=== PATIENT | male | born 1970 | race Caucasian/White ===

== ENCOUNTER 2019-07-22 09:59 | Inpatient (IN) | payer BC ==
[~2019-07-22] VITALS: Ht 172.7 cm; Wt 90.5 kg
[2019-07-22 10:02] VITALS: Ht 172.7 cm; Wt 90.5 kg
--- NOTE | 2019-07-22 10:09 | NUR ---
PT C/O CHEST TIGHTNESS RADIATING TO LEFT SHOULDER WITH SOB AND LEFT SHOULDER NUMBNESS SINCE SATURDAY AM, PT ALSO C/O GENERAL BODY ACHES SINCE SATURDAY AM. PT DENIES ANY COUGH AND/OR HX ANXIETY. PT STS +DIZZY WITH -LOC. PT DENIES ANY EPISODES OF N/V. PT DENIES ANY RECENT TRAUMA AND/OR INJURY, PT AAOX4, RESPS E/U, LUNGS CTA, SKIN PINK DRY AND WARM, NO S/S RESP DISTRESS NOTED AT THIS TIME , PT SPEAKING FULL CLEAR SENTENCES, IN NAD AT THIS TIME, PT GOWNED AND PLACED ON FULL CM , SINUS TACHYCARDIA, AWAITING MSE
--- NOTE | 2019-07-22 10:39 | NUR ---
LAB AT BEDSIDE FOR BLOOD DRAW
[2019-07-22 11:00] LABS: CALCIUM 8.5 mg/dL (8.5-10.1); CARBON DIOXIDE 25.9 mmol/L (21-32); CHLORIDE SERUM 104 mmol/L (98-107); CREATININE SERUM 0.9 mg/dL (0.7-1.3); GFR1 > 60 mL/min; GLUCOSE SERUM 101 mg/dL (74-106); POTASSIUM SERUM 3.8 mmol/L (3.5-5.1); SODIUM SERUM 140 mmol/L (136-145)
[2019-07-22 11:02] LABS: BASOPHIL % 0.3 % (0-2); PLATELET COUNT 264 x10^3mcL (130-400); RED CELL DISTRIBUTION WIDTH 13.2 % (11.5-14.5)
[2019-07-22 11:05] LABS: ALBUMIN 3.6 g/dL (3.4-5.0); ALKALINE PHOSPHATASE 62 U/L (46-116); ALT/SGPT 40 U/L (16-63); AST/SGOT 10 U/L (15-37); BILIRUBIN TOTAL 0.9 mg/dL (0.20-1.00); CHOLESTEROL 226 mg/dL (<200); CHOLESTEROL/HDL RATIO 6.6; HDL CHOLESTEROL 34 mg/dL (40-60); TOTAL PROTEIN, SERUM 7.1 g/dL (6.4-8.2); TRIGLYCERIDES 169 mg/dL (<150)
--- NOTE | 2019-07-22 11:11 | NUR ---
PT. ARRIVED TO ER C/O CHEST PAIN, 07/04, DESCRIBES PRESSURE RADIATING TO THE BACK X 3 MONTHS, NON-PRODUCTIVE COUGH, WEAKNESS, FATIGUED, DIZZY AT TIMES, PT. STATES THAT HE HAS SEEN DOCTOR AND THEY TOLD HIM ALL EXAMS WERE NORMAL, DR. LACEY EXPLAINED POC TO PT, PT. LAYING IN BED, AAOX4, ON LAMP CLEANER, PULSE OX, CHEST X RAY OBNTAINED, BLOOD DRAW OBTAINED, AT BEDSIDE, WILL MONITOR,
--- NOTE | 2019-07-22 11:15 | NUR ---
MEDICATED PT. PER MD ORDER, PT. TOLERATED WELL, SEE EMAR
--- NOTE | 2019-07-22 12:08 | NUR ---
URINE SAMPLE SENT TO LAB
[2019-07-22 12:36] LABS: AMPHETAMINE QUAL UR NONE DETECTED (See below)
--- NOTE | 2019-07-22 14:04 | NUR ---
PT MEDICATED PER MD ORDERS SEE EMAR. PT GIVEN SANDWICH AND OJ OK PER ER MD. PT IN NO DISTRESS ON FULL CM NSR VSS AT BEDSIDE CALL LIGHT IN REACH WILL MONITOR
--- NOTE | 2019-07-22 14:37 | NUR ---
PT. STATING HE HAS THROBBING SENSATION ON LOWER LEFT ABDOMEN, PT. STATES THAT IS WHAT IS CAUSING CHEST PAIN, REPORTED TO DR. LACEY. NO NEW ORDERS AT THIS TIME.
--- NOTE | 2019-07-22 14:57 | NUR ---
BINDING BENCH WORKER AT BEDSIDE, ASKED DR. LACEY IF HE WOULD LIKE A CT OF ABD, HE STATES NO, NOT AT THIS TIME.
--- NOTE | 2019-07-22 15:17 | NUR ---
REPORT GIVEN TO AMY GLEASON, ANSWERED ALL QUESTIONS AND CONCERNS.
--- NOTE | 2019-07-22 15:31 | NUR ---
RECEIVED PT FROM [place] ON A GUERNEY ACCOMPANIED BY . REPORT GIVEN BY AMY MONTALVO. TELEMONITOR 1 PLACED AND READING NSR, HR 75. PT IS AAOX4. PT DENIES H/A AND DIZZINES. RESP EVEN AND UNLABORED. LUNG SOUNDS CTA BILATERALLY. ON R/A. NO COUGH OR SOB NOTED. ABDOMEN SOFT, NONTENDER, NONDISTENDED. BOWEL SOUNDS ACTIVE X4 QUADS. DENIES N/V. PT STATED HIS LAST BM WAS TODAY AND REPORTS DIARRHEA. PERIPHERAL PULSES PALPABLE. NO EDEMA NOTED. SKIN CDI. IVF RUNNING TO RAC, SITE WNL. NO S/S OF INFECTION OR INFILTRATION AT SITE. PT CAN AMBULATE INDEPENDENTLY. PT STATE HE HAS MID CHEST PAIN RADIATING TO THE L SHOULDER AND BACK. PAIN MED WILL BE GIVEN. PT ORIENTED TO ROOM AND CALL LIGHT. BED IN LOW POSITION. CALL LIGHT WITHIN REACH. AT BEDSIDE.
[2019-07-22 15:36] VITALS: BP 121/72
--- NOTE | 2019-07-22 15:40 | NUR ---
RECEIVED PT FROM ED VIA MICHELLE. ORIENTED PT TO ROOM AND SURROUNDINGS. IV NOTED TO RAC PATENT AND INTACT. TELE 1 PLACED ON PT READING NSR. INSTRUCTED PT ON THE USE OF CALL LIGHT FOR ASSISTANCE. ENDORSED PT TO PRIMARY NURSE VICTORINO
--- NOTE | 2019-07-22 16:39 | NUR ---
NORCO 7.5/325MG PO GIVEN FOR 6/10 CHEST PAIN RADIATING TO L SHOULDER AND L BACK. EXTRA FLUIDS ENCOURAGED. RESP EVEN AND UNLABORED. NO RESP DISTRESS NOTED. CALL LIGHT WITHIN REACH.
--- NOTE | 2019-07-22 18:35 | NUR ---
IV CATH TO RAC LEAKING. REMOVED INTACT. SITE WNL. NEW IV STARTED TO RAC 20G, COVERED WITH CDI OCCLUSIVE, SITE WNL. PT IS AAOX4. DENIES PAIN AT THIS TIME. TELE ONE IN PLACE READING NSR. BED IN LOW POSTION. CALL LIGHT WITHIN REACH. WILL ENDORSE ALL CARE TO NOC RN.
--- NOTE | 2019-07-22 19:10 | NUR ---
PT WAS RECEIVED A/O X4, MACEDONIAN SPEAKING WITH SOME KYRGYZ, ABLE TO MAKE NEEDS KNOWN. TELE #1, PT ADMITTED FOR CP BUT DENIES ANY AT THIS TIME. TROP (-) X2, PENDING 3RD TROP. PULSE IS PALPABLE NO EDEMA PRESENT. BREATHING IS EVEN AND UNLABORED ON RA, NO RESP DISTRESS NOTED. ABD SOFT AND NONDISTENDED, DENIES N/V. VOIDS FREELY, BRP. GENERALIZED WEAKNESS, SKIN WARM DRY, AND INTACT. PT DENIES ANY PAIN AT THIS TIME. IV RFA, PATENT AND INTACT, SITE WNL. NO ACUTE DISTRESS NOTED. CALL LIGHT WITHIN REACH. WILL CONTINUE TO MONITOR.
[2019-07-22 20:27] VITALS: BP 113/73
--- NOTE | 2019-07-22 21:32 | NUR ---
PT C/O 05/04 CP. OFFERED PT MORPHINE IVP, PT REQUESTING NORCO, PRN NORCO GIVEN ORDERED. NO ACUTE DISTRESS NOTED, WILL CONTINUE TO MONITOR.
--- NOTE | 2019-07-23 00:10 | NUR ---
PT AWAKE AND ALERT, BREATHING IS EVEN AND UNLABORED. NO RESP DISTRESS. PATIENT DENIES HAVING ANY PAIN AT THIS TIME. IVF INFUSING WELL, SITE WNL. NO ACUTE DISTRESS NOTED. CALL LIGHT WITHIN REACH. WILL CONTINUE TO MONITOR.
--- NOTE | 2019-07-23 04:40 | NUR ---
PT C/O OF 5/10 CP. PRN NORCO GIVEN ORDERED. NO ACUTE DISTRESS NOTED. WILL CONTINUE TO MONITOR.
[2019-07-23 05:43] VITALS: BP 111/72
--- NOTE | 2019-07-23 06:52 | NUR ---
PT SLEPT AT INTERVALS THROUGHOUT EVENING. BREATHING IS EVEN AND UNLABORED. NO RESP DISTRESS NOTED. PT DENIES HAVING ANY PAIN AT THIS TIME. IV FLUIDS INFUSING WELL, SITE WNL. NO ACUTE CHANGES ENCOUNTERED DURING SHIFT. ALL NEEDS MET AND ANTICIPATED. CALL LIGHT WITHIN REACH. WILL ENDORSE CARE TO A NURSE.
--- NOTE | 2019-07-23 07:10 | NUR ---
RECIEVED PT FROM NIGHT NURSE. PT IS LAYING DOWN IN BED WITH HOB UP RESTING. PT LOOKS TO BE IN NO ACUTE DISTRESS AT THIS TIME. PT COMPLAINING OF 4/10 CHEST PAIN AND STATES IS TOLERABLE AT THIS TIME. TELE MONITOR 1 PRESENT SHOWING NSR. IV SITE PATENT WITH NO SIGNS OF ERYTHEMA OR SWELLING WITH IV FLUIDS INFUSING. BED IN LOWEST POSITION, CALL LIGHT WITHIN REACH. WILL CONTINUE TO MONITOR.
[2019-07-23 07:20] LABS: BASOPHIL % 0.4 % (0-2); PLATELET COUNT 229 x10^3mcL (130-400); RED CELL DISTRIBUTION WIDTH 13.8 % (11.5-14.5)
[2019-07-23 07:29] LABS: CALCIUM 8.3 mg/dL (8.5-10.1); CARBON DIOXIDE 26.3 mmol/L (21-32); CHLORIDE SERUM 107 mmol/L (98-107); CREATININE SERUM 1.1 mg/dL (0.7-1.3); GFR1 > 60 mL/min; GLUCOSE SERUM 88 mg/dL (74-106); MAGNESIUM 2.1 mg/dL (1.8-2.4); POTASSIUM SERUM 3.9 mmol/L (3.5-5.1); SODIUM SERUM 144 mmol/L (136-145)
--- NOTE | 2019-07-23 07:33 | NUR ---
PT IN NO ACUTE DISTRESS. CONTINUITY OF CARE ENDORSED TO SONAM REYES. ALL QUESTIONS AND CONCERNS ADDRESSED.
[2019-07-23 09:45] VITALS: BP 114/69
--- NOTE | 2019-07-23 12:16 | NUR ---
PT IS LAYING DOWN IN BED WITH HOB UP RESTING. PT LOOKS TO BE IN NO ACUTE DISTRESS AND STATES HE IS HAVING CHEST PAIN 4/10 AT THIS TIME BUT THE PAIN IS TOLERABLE. PT DENIES ANY OTHER PAIN. FAMILY MEMBERS AT BEDSIDE. CALL LIGHT WITHIN REACH. WILL CONTINUE TO MONITOR.
[2019-07-23 13:12] VITALS: BP 110/68
[2019-07-23 16:30] VITALS: BP 116/63
--- NOTE | 2019-07-23 17:00 | NUR ---
PT IS LAYING DOWN IN BED WITH HOB UP RESTING TALKING WITH FAMILY. PT LOOKS TO BE IN NO ACUTE DISTRESS AT THIS TIME AND STATES THAT HE HAS CHEST PAIN 6/10 AND STATES THE PAIN IS TOLERABLE AT THIS TIME AND STATES DOES NOT NEED MEDICATION AT THIS TIME. INFORMED PT TO CALL NURSE WHEN NEEDING THE PAIN MEDICATION, PT VERBALIZED UNDERSTANDING. BED IN LOWEST POSITION, CALL LIGHT WITHIN REACH. WILL CONTINUE TO MONITOR.
[2019-07-23 20:06] VITALS: BP 99/66
--- NOTE | 2019-07-23 20:12 | NUR ---
PT RECEIVED FROM AM NURSE. PT IS A/O X4, KENYAN SPEAKING, IS ABLE TO MAKE NEEDS KNOWN. TELE #1. NSR 64. CURRENTLY DENIES ANY CP. CIRCULATION WNL, PULSES STRONG BILATERALLY ON ALL FOUR EXTREMITIES. NO EDEMA PRESENT. LUNG SOUNDS CTA, O2 SAT 100% ON RA. CXR NEGATIVE. BOWEL SOUNDS ACTIVE IN ALL 4Q. DENIES ANY N/V. LAST BM THIS MORNING. BRP. AMBULATORY WITH A STEADY GAIT. SKIN IS WARM, DRY, AND INTACT. PT HAS RFA 20G RUNNING NS 50 ML/HR. SITE IS FREE FROM REDNESS AND SWELLING. PT IS CALM AND COOPERATIVE. CALL LIGHT IS WITHIN REACH.
--- NOTE | 2019-07-23 22:55 | NUR ---
PT COMPLAINED OF CP 5/10, WAS GIVEN PRN NORCO PER MD ORDER. WILL REASSESS AND CONTINUE TO MONITOR. CALL LIGHT WITHIN REACH.
--- NOTE | 2019-07-24 01:08 | NUR ---
PT IS RESTING IN BED WITH EYES CLOSED, IS EASILY AROUSABLE. BREATHING IS EVEN AND UNLABORED, NO RESP DISTRESS NOTED. NO S/SX OF PAIN OBSERVED. IVF INFUSING WELL, SITE WNL. NO ACUTE DISTRESS NOTED. PT NPO FOR STRESS TEST IN THE AM, PATIENT VERBALIZED UNDERSTANDING. NPO SIGN POSTED. CALL LIGHT WITHIN REACH. WILL CONTINUE TO MONITOR.
--- NOTE | 2019-07-24 03:41 | NUR ---
PT IS RESTING WITH HOB ELEVATED. STATES HE HAS PAIN 6/10. ADMINISTERED NORCO PRN PER MD ORDER. NO ACUTE DISTRESS. BREATHING IS EVEN AND UNLABORED, NO RESP DISTRESS. WILL REASSESS AND CONTINUE TO MONITOR. CALL LIGHT WITHIN REACH. BED IN LOWEST POSITION.
--- NOTE | 2019-07-24 04:39 | NUR ---
PT CONTINUES TO C/O 10 CP AND BACK PAIN WITH MINIMAL RELIEF FROM NORCO. OFFERED PT MORPHINE IVP, PT REFUSED. PT STATES "THE MEDICATION IS TOO STRONG AND MAKES ME GROGGY." DR. NGUYEN MADE AWARE, AWAITING ORDERS AT THIS TIME. NO ACUTE DISTRESS NOTED. WILL CONTINUE TO MONITOR.
--- NOTE | 2019-07-24 05:05 | NUR ---
PT SLEPT AT INTERVALS THROUGHOUT THE SHIFT. BREATHING IS EVEN AND UNLABORED. NO RESP DISTRESS. PT CONTINUES TO C/O 6/10 CP AND BACK PAIN, DR. NGUYEN AWARE, AWAITING ORDERS. UPDATED PT, PT AGREEABLE TO WAITING FOR ALTERNATIVE PAIN MEDICATION AT THIS TIME. PT REMAINS NPO FOR STRESS TEST. NO ACUTE CHANGES DURING SHIFT.
[2019-07-24 05:36] VITALS: BP 105/68
--- NOTE | 2019-07-24 06:52 | NUR ---
PT CONT TO C/O 06/03 BACK PAIN AND CP, DR NGUYEN CALLED AGAIN AND MADE AWARE. ORDERS RECEIVED. ONE TIME TORADOL IVP GIVEN ORDERD. PT IN NO ACUTE DISTRESS, IVF INFUSING WELL. PT PENDING STRESS TEST THIS AM. WILL ENDORSE CARE TO AM NURSE.
--- NOTE | 2019-07-24 07:00 | NUR ---
RECEIVED CALL FROM [place] IN [place], PER JAJA, WILL MEAT MOLDER PT BETWEEN [phone].
--- NOTE | 2019-07-24 07:05 | NUR ---
RECEIVED BEDSIDE REPORT FROM FLIGHT SIMULATOR TEACHER NURSE AT THIS TIME. PATIENT RESTING COMFORTABLY IN BED. NO APPARENT DISTRESS OR DISCOMFORT NOTED. BREATHING EVEN AND UNLABORED. NO RESPIRATORY DISTRESS OR DISCOMFORT NOTED. NO INDICATION OF CHEST PAIN AT THIS TIME. IV PATENT AND INTACT. ALL QUESTIONS AND CONCERNS ADDRESSED. ALL NEEDS ATTENDED TO. WILL CONTINUE TO MONITOR
[2019-07-24 07:12] LABS: BASOPHIL % 0.7 % (0-2); PLATELET COUNT 228 x10^3mcL (130-400); RED CELL DISTRIBUTION WIDTH 13.6 % (11.5-14.5)
--- NOTE | 2019-07-24 07:23 | NUR ---
PT IN NO ACUTE DISTRESS. CONTINUITY OF CARE ENDORSED TO MOOK REYES. ALL QUESTIONS AND CONCERNS ADDRESSED.
[2019-07-24 07:48] LABS: CALCIUM 8.4 mg/dL (8.5-10.1); CHLORIDE SERUM 107 mmol/L (98-107); GFR1 > 60 mL/min; GLUCOSE SERUM 86 mg/dL (74-106); POTASSIUM SERUM 4.1 mmol/L (3.5-5.1); SODIUM SERUM 144 mmol/L (136-145)
[2019-07-24 08:50] VITALS: BP 112/68
--- NOTE | 2019-07-24 10:28 | NUR ---
ALL MORNING MEDICATIONS ADMINISTERED. PATIENT TOLERATED MEDICATIONS WELL. NO APPARENT ADVERSE EFFECTS NOTED. ALL NEEDS ATTENDED TO. WILL CONTINUE TO MONITOR
--- NOTE | 2019-07-24 11:34 | NUR ---
[facility] STRESS TEST DONE
--- NOTE | 2019-07-24 13:33 | NUR ---
PATIENT C/O CHEST PAIN AT THIS TIME. PATIENT OFFERED MORPHINE. PER PATIENT, MORPHINE IS TOO STRONG AND MAKES HIM DIZZY AND REQUESTING NORCO. PATIENT MEDICATED WITH NORCO PRN. PATIENT TOLERATED WELL. NO APPARENT ADVERSE EFFECTS NOTED. ALL NEEDS ATTENDED TO. WILL CONTINUE TO MONITOR
[2019-07-24 13:39] VITALS: BP 140/72
--- NOTE | 2019-07-24 16:04 | NUR ---
SPOKE TO DR BOB AT THIS TIME REGARDING PATIENT C/O PAIN. PER DR BOB OK TO TELEPHONE ORDER IBUPROFEN 600 MG Q6 PRN. TELEPHONE ORDER READ BACK, CONFIRMED, AND FOLLOWED. THROUGH. RESULTS FROM [facility] READ TO DR BOB. PER DR BOB, PATIENT IS CLEARED FROM A CARDIAC STANDPOINT. WILL NOTIFY MÓNICA OCAMPO. ALL QUESTIONS AND CONCERNS ADDRESSED. ALL NEEDS ATTENDED TO. WILL CONTINUE TO MONITOR
--- NOTE | 2019-07-24 16:30 | NUR ---
SPOKE TO DAMARIS REGARDING PATIENT BEING CLEARED FROM A CARDIAC STANDPOINT AND LEXISCAN IS NEGATIVE. PER DAMARIS, MEDICATE PER DR BOB'S ORDERS WITH IBUPROFEN. ALL NEEDS ATTENDED TO. WILL CONTINUE TO MONITOR
--- NOTE | 2019-07-24 16:55 | NUR ---
PATIENT MEDICATED WITH IBUPROFEN AT THIS TIME. PATIENT TOLERATED WELL. NO APPARENT DISTRESS NOTED. ALL NEEDS ATTENDED TO. WILL CONTINUE TO MONITOR
[2019-07-24 17:59] VITALS: BP 117/79
--- NOTE | 2019-07-24 18:21 | NUR ---
PATIENT RESTING COMFORTABLY IN BED AT THIS TIME. AT BEDSIDE. NO APPARENT DISTRESS OR DISCOMFORT NOTED. IV PATENT AND INTACT. ALL QUESTIONS AND CONCERNS ADDRESSED. ALL NEEDS ATTENDED TO. SAFETY PRECAUTION MAINTAINED. WILL ENDORSE ALL CARE TO SURVEYOR GEOPHYSICAL PROSPECTING NURSE
--- NOTE | 2019-07-24 19:40 | NUR ---
Awake and verbally responsive. No respiratory distress noted on room air. Denies pain. Denies n/v. Ambulating at this time. Normal sinus rhythm. Will cont.to monitor. Call light within reach.
[2019-07-24 20:02] VITALS: BP 103/67
--- NOTE | 2019-07-25 04:07 | NUR ---
Afebrile. No significant change in condition noted. Denies pain. In no apparent distress.
[2019-07-25 05:22] VITALS: BP 126/69
--- NOTE | 2019-07-25 07:05 | NUR ---
RECEIVED BEDSIDE REPORT FROM STRIPPER MACHINE OPERATOR NURSE AT THIS TIME. PATIENT RESTING COMFORTABLY IN BED. NO APPARENT DISTRESS OR DISCOMFORT NOTED. BREATHING EVEN AND UNLABORED. NO RESPIRATORY DISTRESS NOTED. PATIENT DENIES SHORTNESS OF BREATH. PATIENT DENIES CHEST PAIN/PRESSURE AT THIS TIME. IV PATENT AND INTACT. ALL QUESTIONS AND CONCERNS ADDRESSED. ALL NEEDS ATTENDED TO. WILL CONTINUE TO MONITOR
[2019-07-25 07:08] LABS: BASOPHIL % 0.4 % (0-2); PLATELET COUNT 227 x10^3mcL (130-400); RED CELL DISTRIBUTION WIDTH 13.6 % (11.5-14.5)
[2019-07-25 07:18] LABS: CALCIUM 8.3 mg/dL (8.5-10.1); CARBON DIOXIDE 27.1 mmol/L (21-32); CHLORIDE SERUM 108 mmol/L (98-107); CREATININE SERUM 0.9 mg/dL (0.7-1.3); GFR1 > 60 mL/min; GLUCOSE SERUM 96 mg/dL (74-106); POTASSIUM SERUM 3.9 mmol/L (3.5-5.1); SODIUM SERUM 145 mmol/L (136-145)
[2019-07-25 08:14] VITALS: BP 128/63
[2019-07-25] MEDS ORDERED: LIPI10 PO (08:54)
[2019-07-25] MEDS ORDERED: ECO81 PO (08:54)
[2019-07-25 09:32] VITALS: BP 128/63
--- NOTE | 2019-07-25 10:17 | NUR ---
MORNING MEDICATIONS ADMINISTERED. PATIENT TOLERATED MEDICATIONS WELL. NO APPARENT ADVERSE EFFECTS NOTED. ALL NEEDS ATTENDED TO. WILL CONTINUE TO MONITOR
[2019-07-25 11:19] VITALS: BP 103/65
--- NOTE | 2019-07-25 13:10 | NUR ---
PATIENT STABLE TO BE DISCHARGED TO HOME. DISCHARGE INSTRUCTIONS GIVEN WELL EDUCATION. INSTRUCTED PATIENT ABOUT FOLLOW UP APPOINTMENT. PATIENT VERBALIZES UNDERSTANDING. IV REMOVED WITH CATH INTACT. ID BANDS REMOVED. TELE MONITOR REMOVED AND RETURNED TO CHAR CONVEYOR TENDER. ALL BELONGINGS WITH PATIENT. ALL QUESTIONS AND CONCERNS ADDRESSED. ALL NEEDS ATTENDED TO. PATIENT ESCORTED DOWN TO THE LOBBY BY ROLANDO AT THIS TIME
== END 2019-07-25 13:10 | disposition home or self-care (01) | DRG 206 ==
LOC: ED 09:59 → DU 14:07
PROVIDERS: Emergency Medicine; Internal Medicine; ADMIT Internal Medicine
DX: M94.0 Chondrocostal junction syndrome [Tietze] (principal); I10 Essential (primary) hypertension; E78.5 Hyperlipidemia, unspecified; Z68.28 Body mass index [BMI] 28.0-28.9, adult
CPT/HCPCS: 83880; A9500; G0378; J1885; J2270; J2785; J7030; Q0092